=== PATIENT | female | born 1995 | race Caucasian/White ===

== ENCOUNTER 2022-11-08 17:00 | Outpatient (CLI) | payer OTHER, SELFPAY ==
[2022-11-08 18:00] VITALS: BMI 22.8
[2022-11-08 18:09] LABS: Bacteria 0 SEEN /hpf (None Seen); Mucous, Urine 0 SEEN /hpf (<or=2+); Red Blood Cells-Urine 0 SEEN /hpf (0-5)
[2022-11-08 18:10] LABS: Color, Urine Yellow (Yellow); Glucose, Dipstick Normal (Normal); Ketone-Dipstick Negative (Negative); Leukocyte Esterase-Dipstick 100 /ul (Negative); Nitrite-Dipstick Negative (Negative); Occult Blood-Urine Negative /ul (Negative); Protein-Dipstick Negative (Negative); Urine Bilirubin Dipstick Negative (Negative); Urine Clarity Clear (Clear); Urine Urobilinogen Normal (Normal)
--- NOTE | 2022-11-08 18:14 | OB.TRI.NOTE ---
HPI - General General Date of Admission: 11/08/22 Date of Service: 11/08/22 Chief Complaint: spotting HPI Narrative MICHELLE WILLIS, is a 27 F who presents with spotting. No falls or trauma. No recent intercourse. Had an episode of spotting today. Some off and on cramping that is not new. No regular ctx's. No lof. Good FM. PFSH PFSH Allergy/AdvReac Type Severity Reaction Status Date / Time tramadol Allergy Abd Verified 11/08/22 18:13 cramps/diarrhea ciprofloxacin [From Cipro] AdvReac Rash Verified 11/08/22 18:11 Physical Exam Const alert and no apparent distress General Appearance: comfortable GI soft to palpation and non-tender Narrative: Cvx closed NST FHR Rate Baby A Baseline: 135 Variability:: Moderate Accelerations:: 15 x 15 Decelerations:: None NST Reactive:: Yes FHR Category:: Category I Uterine Activity:: No ctx's Assessment & Plan (1) Vaginal bleeding during : PLAN: Pt reports an episode of spotting earlier today. No further bleeding. No bleeding today in triage. Cvx closed and no ctx's on toco. NST reactive. Reviewed PTL precautions and reasons to call or come in. Has appointment later this week for routine OB visit. Ok for d/c home with precautions. Encouraged pelvic rest until no bleeding for 1 week.
[2022-11-08 18:17] LABS: Squamous Epithelial Cells - UA 0-5 SEEN /hpf (5-10); White Blood Cells 0-5 SEEN /hpf (0-5)
[2022-11-08 18:18] VITALS: TEMP 36.9
[2022-11-08 18:19] VITALS: BP 114/64; PULSE 76
== END 2022-11-08 18:25 | disposition home or self-care (01) ==
LOC: WPOUT 17:16 → WP 17:17
PROVIDERS: Referring Provider Advanced Practice Midwife; Visit Provider Advanced Practice Midwife
DX: O46.90 Antepartum hemorrhage, unspecified, unspecified trimester (principal); Z3A.00 Weeks of gestation of pregnancy not specified
CPT/HCPCS: 59025; 59050; 81001; 99221; G0378

== ENCOUNTER 2022-12-10 09:30 | Inpatient (IN) | payer OTHER, SELFPAY ==
--- NOTE | 2022-12-02 13:17 | HP.PCM_ITS ---
History and Physical Date of Admission: 12/10/22 HPI: The patient is a 27 year old female presenting for pre-operative visit. She is scheduled for c/s, for breech, IUGR/Oligo. Procedure discussed along with risks, benefits and complications. Other alternatives discussed for management. Consent form signed? Yes. ? ? PAST MEDICAL HISTORY PAST MEDICAL HISTORY Diagnosis Date ? ADD (attention deficit disorder) ? ? Anxiety state ? ? Asthma ? ? breast lump ? ? left ? Lyme disease 2019 ? Ovarian cyst ? ? TMJ (dislocation of temporomandibular joint) ? ? ? PAST SURGICAL HISTORY PAST SURGICAL HISTORY Procedure Laterality Date ? NONE ? CURRENT MEDICATIONS Current Outpatient Medications Medication Sig Dispense Refill ? multivitamin (CLASSIC ) 28 mg iron- 800 mcg tab(s) Take 1 tablet by mouth once daily. ? ? ? No current facility-administered medications for this visit. ? ? ALLERGIES: Ciprofloxacin and Tramadol ? PERSONAL HISTORY: SOCIAL HISTORY Social History ? Tobacco Use ? Smoking status: Never ? Smokeless tobacco: Never Vaping Use ? Vaping Use: Never used Substance Use Topics ? Alcohol use: Not Currently ? ? Comment: rarely ? Drug use: No ? FAMILY HISTORY: FAMILY HISTORY FAMILY HISTORY Problem Relation Age of Onset ? Arthritis Mother ? ? No Known Problems Father ? ? No Known Problems Sister ? ? No Known Problems Brother ? ? No Known Problems Brother ? ? Arthritis Maternal Grandmother ? ? Cervical Cancer Maternal Grandmother ? ? Heart Maternal Grandfather ? ? Heart Paternal Grandmother ? ? Diabetes Paternal Grandfather ? ? Alzheimer's Disease Paternal Grandfather ? ? ? REVIEW OF SYMPTOMS: GENERAL: denies fevers or chills ENDOCRINOLOGY: has not been on steroids Cardiology : denies palpitations or chest pain Respiratory: denies SOB or cough Hematology: denies history of prolonged bleeding or easy bruising or VTE Allergy: Denies history of personal or family history of allergy to anesthesia ? PHYSICAL EXAMINATION: ? VITALS: Blood pressure 108/60, weight 148 lb (67.1 kg), last menstrual period 03/17/2022. ? GENERAL: The patient is well nourished, well hydrated in no acute distress. , The patient is oriented to time, place, and person. NECK: Supple. No lynphadenopathy, normal thyroid, no thyromegaly. LUNGS: Clear to auscultation bilaterally. no wheezes, rhonchi or rales HEART: Regular rate and rhythm, Normal heart sounds, and No murmurs or gallops ABd- soft, nontender, gavid ? IMPRESSION: Estimated Date of Delivery: 12/22/22 G1 w/ oligo and IUGR, recommended delivery by [facility] at 38-39 weeks. ? PLAN: The risks/benefits/alternatives and personal involved for the planned c- section were reviewed with the patient. Her questions were answered to her satisfaction and she desires to proceed. Consent was signed. I reviewed with her postop instructions and expectations. ? ? I have reviewed and updated past medical and surgical history, medications and allergies Assessment & Plan Assessment/Plan (1) 38 weeks gestation of : (2) Breech position of fetus: (3) IUGR (intrauterine growth restriction): (4) Oligohydramnios in cunha in third trimester:
[2022-12-10] VITALS (16 sets, daily range): BP systolic 99–122; BP diastolic 45–72; PULSE 77–110; RESP 15–18; TEMP 35.7–36.6; O2SAT 95–100; BMI 23.0
[2022-12-10] MEDS: Lactated Ringers 1,000 ML 999 ML IV (10:23)
[2022-12-10 10:43] LABS: Absolute Lymphocyte Count 1.38 X10^3/uL (0.83-4.51); Basophil# 0.04 X10^3/uL; Basophil% 0.6 % (0-1); Eosinophil# 0.15 X10^3/uL; Eosinophils% 2.1 % (0-5); Hematocrit 31.7 % (37-47); Lymphocyte # 1.38 X10^3/ul (0.83-4.51); Mean Corp Hgb Conc 31.5 g/dL (32-36); Mean Corpuscular Hgb 26.2 pg (27.0-32.0); Mean Platelet Vol. 10.3 fl (6.2-12.0); Monocyte% 8.3 % (0-10); NRBC Flagged by Analyzer 0 % (0-5); Neutrophil # 5.03 X10^3/uL (2.7-7.7); Platelet Count 227 K/mm3 (150-450); RBC Distribution Width CV 13.5 % (11.6-14.6); RBC Distribution Width SD 40.5 fl (35.1-43.9); Red Blood Count 3.82 M/mm3 (4.2-5.4); White Blood Count 7.3 K/mm3 (4.4-11.0)
[2022-12-10] MEDS: Acetaminophen 500 MG Tablet 1000 MG PO ×2 (10:46→18:40)
[2022-12-10 11:27] LABS: Syphilis Antibodies Non-reactive
[2022-12-10] MEDS: Lactated Ringers 1,000 ML 150 ML IV (11:34)
--- NOTE | 2022-12-10 12:23 | EX.PCM.OBRPT ---
Assessment & Plan (1) Oligohydramnios in cunha in third trimester: (2) IUGR (intrauterine growth restriction): (3) Breech position of fetus: (4) 38 weeks gestation of : Maternal Data Information Final TANA: 12/22/22 Gestational age: 38 2/7 Details Operative Information Date of Procedure: 12/10/22 Pre-Operative Diagnosis: manas breech, oligo, suspected IUGR Post-Operative Diagnosis: same Classification: Scheduled Procedure Type: low transverse rectifier operator #1: Phil Thapa Type of Anesthesia: Spinal Anesthesiologist: Trupti Lara Antibiotic Given: Ancef 2 grams IV x1 Drain: Richardson to straight drain Estimated Blood Loss: 600 Fluids Replaced: 1000 Procedure Start Time: : Procedure Stop Time: : Time of Delivery: : Findings Description of Procedure: The patient was taken to the operating room. She was prepped and draped in the dorsal supine position with a leftward tilt. A Pfannenstiel skin incision was made approximately 2 cm above the symphysis pubis and carried through to underlying layer fascia with the scalpel. The fascia was incised incised in the midline and extended laterally with the blunt dissection. The fascia was dissected off the rectus muscles with blunt dissection. The rectus muscles were in the midline and the peritoneum was entered bluntly. The peritoneal incision was stretched and the bladder blade was placed. The uterine incision was made in a low transverse fashion with the scalpel and extended superiorly and inferiorly with blunt dissection. The amniotic membranes were ruptured bluntly and clear amniotic fluid returned. The buttocks were brought out through the incision. The left legs were swept out individually. A towel was placed around the abdomen. The arms were swept out individually. The head was then delivered in a flexed position with gentle fundal pressure and no traction. The mouth and nares were bulb suctioned. The cord was clamped and cut as the infant was stimulated. Cord clamping was delayed. The infant was handed off to the waiting nursing staff. The placenta was delivered with fundal massage and gentle traction in the standard fashion. The uterus was exteriorized and cleared of all clots and debris. The cervix was dilated with a ring forcep. The uterine incision was closed with #1 Vicryl in a running locked fashion. The incision was examined and was found to be hemostatic. The uterus was placed back into the peritoneal cavity and hemostasis was again confirmed. The rectus muscles were examined and any bleeding was Bovie cauterized. The parietal peritoneum and rectus muscles were closed en bloc with an 0 Vicryl running suture. The rectus fascia was examined and any bleeding was Bovie cauterized and the rectus fascia was closed with 1 Vicryl suture in a running standard fashion. The subcutaneous tissue was examining and any bleeding was Bovie cauterized. The subcutaneous tissue was reapproximated with 3-0 Vicryl suture. The skin was closed in a subcuticular fashion by the HEARING SCREEN COORDINATOR with me present in the labor and delivery suite. I performed the remainder of the procedure with assistance. All sponge, lap, and needle counts were correct. The patient was taken to her room for recovery in a stable condition. Presentation: Positive for Manas Breech Amniotic Membrane Rupture Type: Artificial Amniotic Fluid Description: Clear Placental Delivery Description: Expressed Placenta Disposition: Sent to Pathology Cord Vessel Description: 3 Vessels Cord Entanglement: None Infant A Gender: Female (1 minute): 8 (5 minute): 9 Delayed Cord Clamping: Yes Complications Complications: none
[2022-12-10] MEDS: Oxytocin 15 Units/NS 250ml 15 UNITS/250 ML IV.SOLN 83 UNITS IV (13:15)
[2022-12-10] MEDS: Ketorolac 30 MG/ML Syringe IV ×2 (13:15→18:40)
[2022-12-10] MEDS: Ondansetron 4 MG/2 ML Vial IV (15:05)
[2022-12-10] MEDS: proCHLORPERazine 10 MG/2 ML Vial IV (15:57)
[2022-12-10] MEDS: 0.9% Saline Lock 10 ML Syringe IV (18:40)
--- NOTE | 2022-12-10 22:38 | NURSING ---
RN notes duramorph check is not on worklist. See shift clinical findings for pulse ox, RR, and HR. Pt not in pain, without itching, and awake, alert, and follows commands verbally. Continuous pulse ox on. Will continue to monitor pt per policy.
[2022-12-11] MEDS: Acetaminophen 500 MG Tablet 1000 MG PO ×5 (00:44→23:50)
[2022-12-11 00:45] VITALS: BP 96/58; PULSE 82; RESP 16; TEMP 36.4; O2SAT 97
[2022-12-11] MEDS: Ketorolac 30 MG/ML Syringe IV ×2 (00:46→07:43)
[2022-12-11] MEDS: 0.9% Saline Lock 10 ML Syringe IV ×2 (00:46→07:43)
[2022-12-11 03:40] VITALS: BP 100/56; PULSE 90; RESP 16; TEMP 36.5; O2SAT 98
[2022-12-11 05:45] LABS: Hematocrit 30.6 % (37-47); Hemoglobin 9.6 g/dL (12.0-15.0); Mean Corp Hgb Conc 31.4 g/dL (32-36); Mean Corpuscular Hgb 26.1 pg (27.0-32.0); Mean Corpuscular Volume 83.2 fL (81-99); Mean Platelet Vol. 9.9 fl (6.2-12.0); Platelet Count 240 K/mm3 (150-450); RBC Distribution Width CV 13.4 % (11.6-14.6); RBC Distribution Width SD 40.6 fl (35.1-43.9); Red Blood Count 3.68 M/mm3 (4.2-5.4); White Blood Count 17.7 K/mm3 (4.4-11.0)
--- NOTE | 2022-12-11 07:17 | PCM.PROGNOTE ---
Subjective Subjective patient seen at bedside, doing well. Patient reports good pain control. lochia mild. passing flatus, urinating w/o difficulty. tolerating regualr diet. Objective Data Objective Data Vital Signs: Vital Signs Temp Pulse Resp BP Pulse Ox O2 Del Method 97.7 F L 90 16 100/56 L 98 Room Air 12/11/22 03:40 12/11/22 03:40 12/11/22 03:40 12/11/22 03:40 12/11/22 03:40 12/11/22 03:40 Oxygen Delivery Method Room Air Weight: 66.678 kg Body Mass Index (BMI) 23.0 Intake & Output: Intake and Output for Last 24 Hours 12/09/22 12/10/22 12/11/22 23:59 23:59 23:59 Intake Total 1950 / 1950 Output Total 1550 / 1550 1400 / 1400 Balance 400 / 400 -1400 / -1400 Lab / Micro Data Attestation: I reviewed the patient's lab results. 12/11/22 05:35 Labs: Laboratory Results - last 24 hr 12/10/22 10:23: WBC 7.3, RBC 3.82 L, Hgb 10.0 L, Hct 31.7 L, MCV 83.0, MCH 26.2 L, MCHC 31.5 L, RDW Std Deviation 40.5, RDW Coeff of Bev 13.5, Plt Count 227, MPV 10.3, Immature Gran % (Auto) 1.000 H, Neut % (Auto) 69.0, Lymph % (Auto) 19.0, [place] % (Auto) 8.3, Eos % (Auto) 2.1, Baso % (Auto) 0.6, Absolute Neuts (auto) 5.0, Absolute Lymphs (auto) 1.38, Nucleated RBC % 0, Syphilis Total Ab Non-reactive, Blood Type A NEGATIVE, Antibody Screen NEGATIVE 12/10/22 21:40: Screen NEGATIVE, Baby's Blood Type A POSITIVE, Baby's MOI NEGATIVE 12/11/22 05:35: WBC 17.7 H, RBC 3.68 L, Hgb 9.6 L, Hct 30.6 L, MCV 83.2, MCH 26.1 L, MCHC 31.4 L, RDW Std Deviation 40.6, RDW Coeff of Bev 13.4, Plt Count 240, MPV 9.9 Physical Exam Const alert and oriented x3 General Appearance: cooperative HEENT normocephalic Neck General: normal visual inspection GI soft to palpation and non-distended GI Narrative: Fundus firm Extremity normal to inspection and no calf tenderness Skin no rashes or lesions noted Neuro oriented x3 and CN's II-XII intact bilaterally Psych mental status grossly normal Assessment & Plan Assessment/Plan (1) Delivery by section: PLAN: Plan POD#1 , Doing well Routine care pain mgmt monitor VS ambulation
[2022-12-11 08:31] VITALS: BP 111/69; PULSE 78; RESP 18; TEMP 36.4; O2SAT 99
[2022-12-11] MEDS: Senna/Docusate Sodium 1 Tablet PO (11:19)
[2022-12-11 11:25] VITALS: BP 103/60; PULSE 73; RESP 16; TEMP 36.2; O2SAT 98
--- NOTE | 2022-12-11 11:40 | CASEMGMT ---
Social Work Assessment Labor and Delivery Unit Patient Address: [address] [place] [address] [place] [address] Phone number: [phone] Date of Referral: 12/11/22 Time of Referral:? 9:30 Referred By: verbal referral by business analytics specialist Date of Intervention: 12/11/22? Time of Intervention:? 11:40 Reason for Referral: MH History obtained from: medical records, mother of baby (MOB) and father of baby (FOB) Household composition: MOB reports she and FOB own their own home, no housing concerns. Patient's parent/guardian status: MOB reports she has been to Wilber ESCALERA, 4 years. FOB is actively involved with NB. MOB and FOB report no DV, MH or AOD concerns for FOB. ?? Medical History: MOB was engaged in care with MOIRA Nascimento starting around 5 weeks. MOB reports this is her first that resulted in their, NB? baby girl, [place]. NB was born 12/10/22, weighing 2965g, and Apgars 8/9. MOB report NB?s feed weigher will be Dr. Nam. MOB will be starting control pill. Educational Status: MOB reports highest level of education is some college, no learning concerns. ? 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 FOB is also employed there which is located near their home so FOB will be available to MOB if needs arise. ? Supplies: MOB reports having all the supplies needed including a car seat, bassinet in their room, clothes and diapers/wipes. Childcare/Caregiver(s): MOB reports she will be home with NB for 6-8 weeks, working from home and then taking NB to work. Transportation: MOB report they have vehicles, no concerns. ?? Programs/Agencies Involved: ??no current agencies involved, MOB declined referrals Children Services/Legal Issues: None reported??? Behavioral Health Issues: ??Mental Health History:? MOB reports history of ADD and anxiety. MOB reports she has been engaged in therapy on and off with same therapist, Viola Petit, with [facility] in [place]. ? Family/Social Stressors:? No stressors identified. Support Systems: MOB reports she is supported by FOB, their family and friends. Depression/Shaken Baby/Safe Sleeping: SW educated MOB and FOB on depression/anxiety as well as shaken baby and safe sleep. MOB report NB will be sleeping in bassinet in their bedroom until NB can transition to their nursery. SW provided MOB with educational information as well as resources on the topics. MOB report understanding and voice no other needs. SW encouraged MOB to contact OB or PCP if she is concerned with symptoms. ??? ASSESSMENT:? SW met with MOB and introduced herself and role as [facility] Fire Alarm Inspector. MOB in agreement to speak with SW with FOB present. SW utilized open and close ended questions to gather information needed for an assessment. MOB report having supplies needed, identified supports and reports no current community resources. MOB report history of anxiety and has been engaged in counseling services since she was 15 years old with [facility] in [place]. ANEL educated MOB on safe sleep, shaken baby and PPD/A. ANEL also provided local resources for [facility]. ANEL updated RN of resources provided, no concerns. PLAN:? ?No other services requested or indicated. Alyssa De La Cruz POULTRY SEXER, MAYANK
[2022-12-11] MEDS: Ibuprofen 600 MG Tablet PO ×2 (13:37→19:41)
[2022-12-11 16:31] VITALS: BP 103/59; PULSE 70; RESP 16; TEMP 35.9; O2SAT 98
[2022-12-11 19:42] VITALS: BP 111/69; PULSE 77; RESP 16; TEMP 36.6; O2SAT 98
[2022-12-12] MEDS: Ibuprofen 600 MG Tablet PO ×2 (01:49→07:16)
[2022-12-12 01:50] VITALS: BP 112/68; PULSE 75; RESP 16; TEMP 36.3; O2SAT 99
[2022-12-12] MEDS: Acetaminophen 500 MG Tablet 1000 MG PO (05:40)
--- NOTE | 2022-12-12 07:23 | PCM.PROGNOTE ---
Subjective Subjective patient seen at bedside, doing well. Patient reports good pain control. lochia mild. Objective Data Objective Data Vital Signs: Vital Signs Temp Pulse Resp BP Pulse Ox O2 Del Method 97.4 F L 75 16 112/68 99 Room Air 12/12/22 01:50 12/12/22 01:50 12/12/22 01:50 12/12/22 01:50 12/12/22 01:50 12/12/22 01:50 Oxygen Delivery Method Room Air Weight: 66.678 kg Body Mass Index (BMI) 23.0 Intake & Output: Intake and Output for Last 24 Hours 12/10/22 12/11/22 12/12/22 23:59 23:59 23:59 Intake Total 1950 / 1950 Output Total 1550 / 1550 1400 / 1400 Balance 400 / 400 -1400 / -1400 Lab / Micro Data 12/11/22 05:35 Physical Exam Const alert and oriented x3 General Appearance: cooperative HEENT normocephalic Neck General: normal visual inspection GI soft to palpation and non-distended GI Narrative: Fundus firm Extremity normal to inspection and no calf tenderness Skin no rashes or lesions noted Neuro oriented x3 and CN's II-XII intact bilaterally Psych mental status grossly normal Assessment & Plan Assessment/Plan (1) Delivery by section: PLAN: Plan POD# 2 , Doing well Routine care pain mgmt monitor VS ambulation dc home
--- NOTE | 2022-12-12 07:24 | DCINST_ITS ---
Discharge Instructions Diet Discharge Diet: No restrictions Activity May resume sexual activity in: 6-8 weeks Lifting Restrictions: 25 Dressing / Incision Call your doctor if your incision/area has: Continuous Slow Oozing, Sudden Increased Bleeding, Increased Pain/ Swelling, Increased Redness, Foul Smelling Discharge and Swelling at the incision site Call your doctor if you observe: Fever of 101 or Higher, Inability to urinate, Using more than 1 pad per hour and Uncontrolled pain Additional Dressing/Incision Instructions:: remove dressing at 7 days post op- if it becomes saturated prior to that time you may remove it. Let soap and water run over incision sites and dab dry. keep incision clean and dry. Follow Up Care Please Follow Up With: Jaye Bacon MD When: 1-2 weeks post of incision check and again at 6 weeks post . [phone] Test Results: Test results from this visit will be discussed in further detail at your follow- up appointment, if applicable. Discharge Plan Admission Admit Date/Time: 12/10/22 09:30 Attending Provider: Nikki Nascimento Primary Care Provider: Care Physician,Jen Primary Discharge Orders/Prescriptions Prescriptions: New acetaminophen 500 mg Tablet 1,000 mg PO Q6 Qty: 0 0RF ibuprofen 600 mg Tablet 600 mg PO Q6H Qty: 0 0RF simethicone 80 mg Tablet,Chewable 80 mg PO PCHS PRN (Reason: Indigestion/stomach pain) Qty: 0 0RF Referrals / Follow Up: Care Physician,No Primary [Primary Care Provider] - Disposition Disposition (needs filled in before D/C Order can be placed): Home, Self Care
--- NOTE | 2022-12-12 07:25 | PCM.DC.BLA ---
Discharge Summary Date of Admission: 12/10/22 Date of Discharge: 12/12/22 Summary: Admitted to [facility] on 12/10/2022 for a scheduled primary section for IUGR, oligohydramnios, breech presentation underwent a low transverse section performed by Dr. Nikki Nascimento with an uncomplicated postoperative course. Discharged home on postoperative day #2 in stable condition on 12/12/2022. Meaningful Use Info Meaningful Use Diagnoses (Choose all that apply): None applicable Discharge Plan Admission Admit Date/Time: 12/10/22 09:30 Attending Provider: Nikki Nascimento Primary Care Provider: Care Physician,Jen Primary Discharge Orders/Prescriptions Prescriptions: New acetaminophen 500 mg Tablet 1,000 mg PO Q6 Qty: 0 0RF ibuprofen 600 mg Tablet 600 mg PO Q6H Qty: 0 0RF simethicone 80 mg Tablet,Chewable 80 mg PO PCHS PRN (Reason: Indigestion/stomach pain) Qty: 0 0RF Referrals / Follow Up: Care Physician,No Primary [Primary Care Provider] - Disposition Disposition (needs filled in before D/C Order can be placed): Home, Self Care
[2022-12-12 08:01] VITALS: BP 103/56; PULSE 70; RESP 16; TEMP 36.2; O2SAT 98
== END 2022-12-12 10:42 | disposition home or self-care (01) | DRG 787 ==
PROVIDERS: Admitting Provider Obstetrics & Gynecology; Referring Provider Obstetrics & Gynecology; Visit Provider Obstetrics & Gynecology
PROC: 10D00Z1 Extraction of Products of Conception, Low, Open Approach (ICD-10-PCS; CPT 59514; principal; 2022-12-10 11:45)
DX: O32.1XX0 Maternal care for breech presentation, not applicable or unspecified (principal); O41.03X0 Oligohydramnios, third trimester, not applicable or unspecified; O36.5930 Maternal care for other known or suspected poor fetal growth, third trimester, not applicable or unspecified; Z37.0 Single live birth; Z3A.38 38 weeks gestation of pregnancy
CPT/HCPCS: 59050; 85025; 85027; 85461; 86780; 86850; 86900; 86901; 99221; J7120; A4216; G0378; J2405; J2790